=== PATIENT | male | born 1945 | race Caucasian/White ===

== ENCOUNTER → 2017-09-18 | Outpatient (CLI) | payer OTHER ==
[~2017-09-18] VITALS: Ht 185.4 cm; Wt 103.9 kg
[~2017-09-18] MED LIST: ASPIR 8181 MG PO; ATORVASTATIN CA40 MG PO; CENTRUM SILVER1 EAC4 PO; CO Q-10100 MG PO; CYCLOBENZAPRINE10 MG PO; GLUCOTROL5 MG PO; HYDROCHLOROTH12.5 M1 PO; HYDROCODONE-AP1 EAC6 PO; LISINOPRIL40 MG PO; METFORMIN HCL500 MG PO; NABUMETONE 500500 M1 PO; NEURONTIN 300300 M1 PO; NOVOLIN N100 UNIT/3 SQ; OMEGA 3 1,0001 EACH PO; PROTONIX40 M1 PO; VENTOLIN HFA 1818 GM INH
--- NOTE | ~2017-09-18 | HPC ---
[facility] [place] [address] PAIN MANAGEMENT CONSULTATION Name: JAVIER DIAZ Room #: REG [facility] Shashi#: [id number] Admission: 09/18/17 Attend Phys: Santiago Boyer DO Discharge: Date of : 43 Report #: [id number] THIS REPORT FOR: //name// CC: Santiago Liang Xiao DATE OF SERVICE: 09/18/2017 CHIEF COMPLAINT: Low back pain, left lower extremity pain and paresthesias. HISTORY OF PRESENT ILLNESS: As you know, the patient is a 71-year-old male who reports acute onset of low back pain and left lower extremity pain that presented on 07/24/2017. The patient states he suffered no new injury, no new trauma that may have led to symptom development. The patient sought evaluation through his primary care physician who ultimately sent the patient to see Dr. Wes Zayas given the findings on MRI. Findings were such that surgical options may be necessary, specifically at the L3-L4, L4-L5, and L5-S1 levels. The patient states that he has mainly left anterior thigh pain that presents throughout the day, but upon waking in the morning hours, he has bilateral lower extremity symptoms radiating in a dermatomal distribution of L5 and S1, correlating to the findings on his MRI. The patient states that he used to undergo chiropractic manipulation with good efficacy, but unfortunately chiropractic manipulation has begun to wane in its activity of improvement in symptoms. The patient sought evaluation with Dr. Zayas who referred the patient to our clinic to trial epidural injections. If these are ineffective, move forward with surgical options. The patient indicates the pain is intermittent, describes the pain as sharp and stabbing, places current pain score at 7-8/10; daily average at 2-9/10; at worst, pain has been at 10/10. The patient states standing for long periods of time exacerbates symptoms. Pain is improved with sitting in a chair or lying on his right side. He has been referred to our service to trial epidural injections to determine if these could improve the patient's symptoms versus moving forward with surgical options. PAST MEDICAL HISTORY: 1. Osteoarthritis. 2. Asthma. 3. Coronary artery disease. 4. Diabetes mellitus type 2. 5. Lumbar spondylosis. 6. Synovial cyst of the facet joints of the lumbar spine. 7. Dyslipidemia. 8. Diabetes mellitus type 2, insulin-dependent. [address] [address] PAIN MANAGEMENT CONSULTATION Name: JAVIER DIAZ Room #: REG CLI [facility]#: [id number] Admission: 09/18/17 Attend Phys: Santiago Boyer DO Discharge: Date of : 43 Report #: [id number] PAST SURGICAL HISTORY: Bilateral hip arthroplasties. SOCIAL HISTORY: The patient denies tobacco, IV or illicit drug use. Admits to 3-4 alcohol beverages per week. 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 He is working periodically. He is not receiving workmen's compensation nor is he trying to obtain disability benefits. He is not in litigation in regards to pain. REVIEW OF SYSTEMS: Positive for fatigue and weakness, wearing corrective eyewear, shortness of breath with walking and lying flat, asthma, wheezing, nocturia, incontinence and dribbling to urine, testicular lumps, numbness and tingling sensations, bilateral hand pain, insulin-dependent diabetes. All other review of systems negative per 12-point review of systems other than those listed in history of present illness. Pain impact score 39/70 indicating moderate interference of daily activities secondary to pain. ALLERGIES: PENICILLIN AND SULFA. CURRENT MEDICATIONS: Hydrochlorothiazide 12.5 mg once a day, glipizide 5 mg twice a day, insulin sliding scale, aspirin 81 mg per day, Coenzyme Q 100 mg per day, omega-3 fish oil 1200 mg once a day, multivitamin 1 tab per day, hydrocodone 5/325 one tab every 8 hours p.r.n. for pain, metformin 500 mg twice a day, lisinopril 40 mg once a day, atorvastatin 40 mg per day, pantoprazole 40 mg per day, albuterol 2 puffs q.4 hours p.r.n., gabapentin 300 mg 3 times a day. IMAGING: MRI of the lumbar spine obtained on 08/24/2017 shows T12-L1 unremarkable, L1-L2 shows disk space narrowing control, he has ventral endplate osteophyte formation, annular bulge extending approximately 3 mm posterior. There is no focal disk herniation, central canal stenosis or neural foraminal narrowing at this level. L2-L3 is unremarkable. L3-L4 shows mild bilateral facet arthropathy, ligamentum flavum hypertrophy, no evidence of disk herniation. There is prominent left foraminal to extraforaminal asymmetrical bulging. This results in mild-to- moderate narrowing of the inferior aspect of the left exiting nerve root. L4-L5 shows bilateral degenerative changes, hypertrophic changes, bilateral facet effusions, mild ligamentum flavum hypertrophy, facet joint synovial cysts on the right, resulting in mass effect on right lateral sac with medial displacement of the transversing L5 sacral nerve roots. There is left foraminal to extraforaminal broad-based asymmetric disk bulge resulting in marked left foraminal stenosis and left foraminal L4 nerve root impingement. L5-S1, moderate bilateral facet degenerative changes, small bilateral facet joint effusions. There is synovial cyst on the left with a posterior margin and impingement of the left L5 nerve root. Posterior facet changes noted. [facility] [address] [place] [address] PAIN MANAGEMENT CONSULTATION Name: JAVIER DIAZ Room #: REG [facility].#: [id number] Admission: 09/18/17 Attend Phys: Santiago Boyer DO Discharge: Date of : 43 Report #: [id number] PHYSICAL EXAMINATION: VITAL SIGNS: Blood pressure 147/55, pulse is 66, respiratory rate 14 and unlabored. The patient is 95% on room air, height 6 feet and 1 inch tall, weight 229 pounds, BMI calculated 30.2. GENERAL: Well-developed, well-nourished, well-hydrated 71-year-old male. He appears his stated age. He is in no acute distress, awake, alert and oriented x 3. Current pain score is rated at 8/10. HEENT: Normocephalic, atraumatic. Pupils equal, round, reactive to light. Extraocular muscles are intact. Sclerae nonicteric without injection. NEUROLOGIC: Cranial nerves 2-12 grossly intact. Speech is fluent. The patient deemed a good historian. LUNGS: Clear, no wheeze, rhonchi or rales. CARDIOVASCULAR: Regular. No appreciable gallop, no rub. ABDOMEN: Soft, nontender, nondistended, normoactive bowel sounds. EXTREMITIES: Show no clubbing, no cyanosis, no edema. MUSCULOSKELETAL: Lower extremity, the patient's lower extremity strength is 5/5 except for the left side with hip flexion and knee extension with 4/5 rated quadriceps. Deep tendon reflexes 2+/4 at patella and Achilles. Ankle clonus negative. Babinski is negative. Gait is antalgic favoring left lower extremity over right. The patient does use a cane for ambulation. He appears intact to light touch from L1 through S2 dermatomes. Seated straight leg raising positive on the left. Supine straight leg raising positive on the left. ASSESSMENT: 1. Symptomatic lumbar radiculopathy. 2. Displacement of lumbar intervertebral disk with radiculopathy. 3. Lumbosacral spondylosis with radiculopathy. 4. Neural foraminal stenosis of lumbar spine. 5. Facet arthropathy of the lumbar spine. 6. Chronic intractable pain. PLAN: Based on today's physical exam and history, the patient was provided with the prescription the patient uses in regard to pain as well as the location of symptoms that he notes in the day and upon waking in the morning, this is likely due to the changes at the foramen at L4-L5 and L5-S1 and do correlate to bilateral nature of the patient's pain in the morning hours. These tend to resolve with activity and changing position, but unfortunately the patient continues to experience left anterior thigh pain, which correlates more to the findings at the L3-L4 level. We have discussed with the patient the potential treatment options for the combination of symptoms that he is experiencing. Following was discussed with the patient on appropriate treatment options for pain management. We discussed physical therapy, stretching exercise, core strengthening. This is [address] [address] PAIN MANAGEMENT CONSULTATION Name: EMILYJAVIER PADILLA Room #: REG [facility] Shashi#: [id number] Admission: 09/18/17 Attend Phys: Santiago E. Merlin, DO Discharge: Date of : 43 Report #: [id number] the mainstay of treatment for pain generator from the low back. The patient has been referred by Dr. Zayas to begin physical therapy. We encouraged the patient to take this opportunity to continue the physical therapy. We discussed neuropathic pain medications. At present, the patient is taking gabapentin 300 mg 3 times a day, but is noticing no improvement in symptoms, no side effects. This could be rapidly escalated to a much higher dose for greater efficacy. We also discussed the addition of nonsteroidal anti-inflammatories and possible use of a muscle relaxant to provide better benefit. We discussed the requested epidural injections for which Dr. Zayas referred the patient to our clinic and the likely surgical options. After reviewing risks and benefits of all proposed treatment options, the patient chose to begin with epidural injection under fluoroscopic guidance. The patient was advised that third democrat payer restrictions require that authorization be obtained before the patient could undergo this epidural injection. Authorization could take anywhere from 4-7 working days, begin this process immediately, contact the patient once it has been completed, we will have him return at that point to undergo the first in a series of epidural injections, To control pain over the next couple of days as we await the authorization, the patient will increase his gabapentin. We will be utilizing Gralise in sample form. He will take 600 mg at night, which equates to 600 mg 3 times a day dose, which is an escalation from his 300 mg 3 times a day dose that he is currently taking. This will be taken again at night 2 hours before bedtime. He will then continue de-escalation as directed by the titration pack to a point where he begins to experience improvement in symptoms. He is to watch for side effects of somnolence, decreased mental acuity, disorientation, confusion. If he notes any side effects, reduce to the dose prior and contact our clinic. He was given a titration pack of Gralise today to begin this escalating dose. He is to stop his own home gabapentin in favor of this Gralise formulation. The patient was provided prescription of nabumetone 500 mg dose 1 tab p.o. t.i.d., I have given the patient #90. This is going to be utilized for anti-inflammatory effects and pain control. The patient will initiate this medication immediately. He will watch for side effects of dyspepsia, worsening of blood pressure, lower extremity edema. Any side effects, discontinue immediately, call for further instructions. The patient will be started on cyclobenzaprine 10 mg dose 1 tab p.o. b.i.d., I have given the patient #60 tablets, no refills. The patient was advised to watch for somnolence, decrease mental acuity, disorientation and confusion. If he notes any side effects, contact our clinic. We will see the patient back in followup visit once we have achieved authorization for the patient to undergo first in a series of epidural injections per the request of Dr. Zayas. The [place] [address] PAIN MANAGEMENT CONSULTATION Name: EMILYJAVIER PADILLA Room #: REG [facility]#: [id number] Admission: 09/18/17 Attend Phys: Santiago Boyer DO Discharge: Date of : 43 Report #: [id number] appointment next week in preparation for the authorization. If this is not obtained, we will then move the patient's time to a further opened appointment slot. We wish to thank Dr. Zayas for the referral of patient to our clinic. We will keep you apprised of his response to treatment as we address lumbar radicular symptoms. Again, we wish to thank you for the opportunity to see the patient in consultation. <ELECTRONICALLY SIGNED> By: Santiago Boyer DO 09/19/17 [id number] Santiago Boyer DO /nt
[2017-09-18 12:55] VITALS: BP 147/55
== END ==
LOC: PAIN 07:29
DX: M47.27 Other spondylosis with radiculopathy, lumbosacral region (principal); M48.062 Spinal stenosis, lumbar region with neurogenic claudication; M51.16 Intervertebral disc disorders with radiculopathy, lumbar region; M12.88 Other specific arthropathies, not elsewhere classified, other specified site; G89.29 Other chronic pain

== ENCOUNTER → 2017-09-25 | Outpatient (CLI) | payer OTHER ==
[~2017-09-25] VITALS: Ht 185.4 cm; Wt 105.0 kg
--- NOTE | ~2017-09-25 | HPC ---
[address] [place] [address] PAIN MANAGEMENT CONSULTATION Name: JAVIER DIAZ Room #: REG [facility].#: [id number] Admission: 09/25/17 Attend Phys: Santiago Boyer DO Discharge: Date of : 43 Report #: [id number] THIS REPORT FOR: //name// CC: Santiago Liang Xiao DATE OF SERVICE: 09/25/2017 CHIEF COMPLAINT: Low back pain, left lower extremity pain with paresthesias. HISTORY OF PRESENT ILLNESS: As you know, the patient is a 71-year-old male who reports acute onset of low back pain, left lower extremity pain and paresthesias, presented on 07/24/2017. He states he suffered no injury, no trauma that may have led to symptom development. He was seen by his neurosurgeon, Dr. Wes Zayas, who referred the patient to our clinic to trial epidural injections under fluoroscopic guidance to determine if his symptoms would improve with these conservative treatments. He was seen in consultation per the request of Dr. Zayas on 09/18/2017 and diagnosed with symptomatic lumbar radiculopathy secondary to the displacement of a lumbar intervertebral disk and facet arthropathy of the lumbar spine causing neural foraminal stenosis. At that visit, the patient and I discussed the various treatment options for lumbar radicular symptoms including the requested epidural injection. Due to third constitution party payer restrictions, the patient was unable to undergo the procedure at that visit. He returns today having received precertification to undergo the first in a series of epidural injections in hopes of improving pain. He denies new injury, new trauma or any changes in his medical history since our last visit. ALLERGIES: PENICILLIN, SULFA. CURRENT MEDICATIONS: Hydrochlorothiazide, glipizide, insulin, Coenzyme Q, omega-3 fish oil, multivitamin, hydrocodone, metformin, lisinopril, atorvastatin, pantoprazole, albuterol, gabapentin. SOCIAL HISTORY: The patient denies tobacco, IV or illicit drug use. Admits to 3 alcoholic beverages per week. 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 He is unaccompanied today. IMAGING: There is no new imaging available. PHYSICAL EXAMINATION: VITAL SIGNS: Blood pressure 143/64, pulse 65, respiratory rate 20 and unlabored. The patient is 99% on room air. Height is 6 feet 1 inch tall, weight is 231.4 pounds, BMI calculated 30.5. GENERAL: Well-developed, well-nourished, well-hydrated 71[place] [address] PAIN MANAGEMENT CONSULTATION Name: JAVIER DIAZ Room #: REG [facility].#: [id number] Admission: 09/25/17 Attend Phys: Santiago Boyer DO Discharge: Date of : 43 Report #: [id number] appearing his stated age, placing current pain score at around 7-8/10. HEENT: Normocephalic, atraumatic. Pupils equal, round, reactive to light. Extraocular muscles are intact. Sclerae nonicteric without injection. NEUROLOGIC: Cranial nerves 2-12 grossly intact. Speech is fluent. The patient deemed a fair historian. EXTREMITIES: Show no clubbing, no cyanosis, no edema. MUSCULOSKELETAL: Lower extremity strength appears equal and symmetrical, 5/5. Giveaway strength noted with hip flexion, knee extension on the left when compared to the right. Seated straight leg raising negative. Supine straight leg raising positive on the left. NICOLASA test negative. Modified Gaenslen's positive for axial back pain. Ankle clonus negative. Babinski is negative. ASSESSMENT: 1. Symptomatic lumbar radiculopathy. 2. Displacement of lumbar intervertebral disk with radiculopathy. 3. Lumbosacral spondylosis with radiculopathy. 4. Neural foraminal stenosis of lumbar spine. 5. Facet arthropathy of the lumbar spine. 6. Chronic intractable pain. PLAN: 1. The patient returns today in followup visit having received precertification to undergo epidural injection under fluoroscopic guidance. Precertification has been obtained through his third constitution party payer to undergo the first in a series of epidural injections. We have discussed with the patient the risks and the benefits of this procedure. These risks include, but not necessarily limited to bleeding, bruising, infection, worsening pain, no relief of pain, also risk of temporary or permanent muscle weakness, temporary or permanent nerve damage, possible paralysis and . The patient states he understood and wished to proceed. 2. No medication changes made at today's visit. The patient to continue current medical therapy as previously prescribed. 3. The patient to return to our clinic on an as-needed basis for the next in the series of epidural injections. We have made him an appointment back on a p.r.n. basis at this point. He is to discuss his efficacy with his neurosurgeon after this first injection. PROCEDURE NOTE DESCRIPTION OF PROCEDURE: L5-S1 left paramedian epidural steroid injection under fluoroscopic guidance. This is the first procedure of the first series that the patient is undergoing. After obtaining written consent, the patient was taken back to the fluoroscopy suite, placed in a prone position with pillow under the abdomen to decrease [address] [address] PAIN MANAGEMENT CONSULTATION Name: JAVIER DIAZ Room #: REG [facility]#: [id number] Admission: 09/25/17 Attend Phys: Santiago Boyer DO Discharge: Date of : 43 Report #: [id number] lumbar lordosis. The skin overlying the lumbosacral area was then prepped and draped in aseptic fashion. The L5-S1 vertebral interspace was then identified by AP fluoroscopy. The skin and subcutaneous tissue overlying the target site of injection was anesthetized with 3 mL 1% lidocaine. A 20-gauge 3-1/2 inch Tuohy needle was then advanced under fluoroscopic guidance towards the epidural space using a left paramedian approach. The epidural space was identified using loss of resistance to air technique. After negative aspiration for heme or cerebrospinal fluid, a total of 1 mL of Omnipaque was injected. A lumbar epidurogram was confirmed using both AP and lateral fluoroscopy. After negative aspiration for heme or cerebrospinal fluid, 5 mL of a solution containing 2 mL 40 mg per mL, 80 mg total triamcinolone, 3 mL lidocaine 1% was injected in increments. Contrast spread was noted posterior epidural space. The needle was then retracted approximately half way and needle tract flushed with 1 mL of 1% of lidocaine. Needle was then removed. There were no apparent sensory or motor deficits in the lower extremity following the procedure. A sterile bandage was placed over the injection site. The heart rate, pulse, oximetry and blood pressure were continuously monitored after the procedure. There were no apparent complications. The patient tolerated the procedure well and was carefully escorted to the recovery room in stable condition. There were no apparent complications. After meeting discharge criteria, the patient was then discharged home. By: [id number] Santiago Boyer DO /nt
[2017-09-25 10:50] VITALS: BP 143/64
== END | disposition home or self-care (01) ==
LOC: PAIN 06:38
DX: M51.16 Intervertebral disc disorders with radiculopathy, lumbar region (principal); M47.27 Other spondylosis with radiculopathy, lumbosacral region; M48.061 Spinal stenosis, lumbar region without neurogenic claudication; M46.96 Unspecified inflammatory spondylopathy, lumbar region; G89.29 Other chronic pain; Z88.0 Allergy status to penicillin; Z88.2 Allergy status to sulfonamides; Z79.899 Other long term (current) drug therapy

== ENCOUNTER 2018-01-07 12:38 | Emergency (ER) | payer OTHER ==
[~2018-01-07] VITALS: Ht 185.4 cm; Wt 99.8 kg
[2018-01-07] MEDS ORDERED: NORCO 5-325 TA1 EACH PO (13:12)
[2018-01-07] MEDS ORDERED: PERCOCET PO (15:34)
[2018-01-11] MEDS ORDERED: NAPROSYN500 M1 PO (08:13)
[2018-01-11] MEDS ORDERED: PERCOCET 7.5-31 EACH PO (08:13)
== END 2018-01-07 15:51 | disposition home or self-care (01) ==
LOC: ER 12:38
DX: M51.36 Other intervertebral disc degeneration, lumbar region (principal); M54.32 Sciatica, left side; M79.605 Pain in left leg; E11.9 Type 2 diabetes mellitus without complications; J45.909 Unspecified asthma, uncomplicated; Z79.4 Long term (current) use of insulin; Z88.0 Allergy status to penicillin; Z88.2 Allergy status to sulfonamides

== ENCOUNTER → 2018-01-11 | Outpatient (CLI) | payer OTHER ==
[~2018-01-11] VITALS: Ht 185.4 cm; Wt 83.9 kg
[~2018-01-11] MED LIST changes: +NAPROSYN500 M1 PO; +NORCO 5-325 TA1 EACH PO; +NOVOLIN N100 UNIT/1 SUBQ; +PERCOCET 7.5-31 EACH PO; +PERCOCET PO; +TYLENOL EXTRA500 MG PO
--- NOTE | ~2018-01-11 | HPC ---
[facility] [place] [address] PAIN MANAGEMENT CONSULTATION Name: JAVIER DIAZ Room #: REG MARIAMA AdamesChloeIban.#: [id number] Admission: 01/11/18 Attend Phys: Santiago Boyer DO Discharge: Date of : 43 Report #: [id number] THIS REPORT FOR: //name// CC: Santiago Liang Xiao DATE OF SERVICE: 01/11/2018 CHIEF COMPLAINT: Low back pain, left lower extremity pain with paresthesias. HISTORY OF PRESENT ILLNESS: As you know, the patient is a 72-year-old male who returns today in followup visit with recurrent low back pain, left lower extremity pain and paresthesias. The patient states he was doing well from a post-procedural standpoint, reporting improvement in his symptoms of about 60% with previous epidural injection, this lasted until just recently where he has had a return of symptoms. He denies injury or trauma. No change in his medical history. He indicates pain is sharp, stabbing and throbbing. Places his current pain score at 8-9/10. Pain is exacerbated with sitting, walking; improves with repositioning, medications, heat and cold compresses and epidural injections. The patient returns today in followup visit to undergo epidural injection under fluoroscopic guidance. ALLERGIES: PENICILLIN, SULFA. CURRENT MEDICATIONS: Oxycodone, cyclobenzaprine, nabumetone, hydrochlorothiazide, glipizide, insulin, aspirin, ubiquinone, omega-3 fish oil, multivitamin, metformin, lisinopril, atorvastatin, pantoprazole, albuterol, gabapentin. SOCIAL HISTORY: The patient denies tobacco, alcohol, IV or illicit drug use. 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 He is working periodically, unaccompanied today. IMAGING: There is no new imaging available. PHYSICAL EXAMINATION: VITAL SIGNS: Blood pressure 124/68, pulse 69, respiratory rate 16 and unlabored. The patient is 97% on room air, height 6 feet 1 inches tall, weight 185 pounds, BMI calculated 24.4. GENERAL: Well-developed, well-nourished, well-hydrated 72-year-old male appearing stated age, placing current pain score at 8-9/10. HEENT: Normocephalic, atraumatic. Pupils equal, round, reactive to light. Extraocular muscles are intact. EXTREMITIES: Show no clubbing, no cyanosis, no edema. MUSCULOSKELETAL: Gait is extremely antalgic [place] [address] PAIN MANAGEMENT CONSULTATION Name: JAVIER DIAZ Room #: REG [facility].#: [id number] Admission: 01/11/18 Attend Phys: Santiago Boyer DO Discharge: Date of : 43 Report #: [id number] right. The patient guards the left lower extremity, offloading weight to the right to decrease pain. Seated straight leg raising positive on the left. Supine straight leg raising positive on the left. NICOLASA test is negative. Modified Gaenslen's positive for axial low back pain. Ankle clonus negative. Babinski is negative. Muscle bulk and tone is symmetrical when comparing left lower extremity to right. ASSESSMENT: 1. Lumbar radiculopathy. 2. Displacement of a lumbar intervertebral disk with radiculopathy. 3. Lumbosacral spondylosis with radiculopathy. 4. Severe neural foraminal stenosis of lumbar spine. 5. Facet arthropathy of the lumbar spine. 6. Lumbar degeneration. 7. Chronic intractable pain. PLAN: 1. The patient returns today in followup visit to undergo next in the series of epidural injections. The patient had to be seen in the Emergency Department recently due to pain that became intense to the point where he could no longer tolerate the symptoms. He was seen in the ER, provided IV and oral medication and discharged home. There was no new imaging to review. The patient was advised to return to our clinic to trial an epidural injection. Due to third constitution party payer restrictions, we had to obtain authorization; we have done so and the patient is now ready to undergo epidural injection. The patient was provided today's appointment to undergo this epidural injection in hopes of improving pain. He was advised risks and benefits, states understood and wished to proceed. 2. Would recommend a discontinuation of nabumetone will be shifting his nonsteroidal anti-inflammatory over to naproxen 500 mg 3 times a day dose. I have given the patient a prescription of #90 tablets with 2 refills. The patient was advised to watch for side effects of dyspepsia, worsening blood pressure, lower extremity edema with the use of this therapy. 3. I have offered a prescription of oxycodone to the patient for pain control. This is to be used only when pain is intolerable, not to rely on the medication prophylactically. We have given him a prescription of oxycodone 5/325 one tab every 4-6 hours p.r.n. for pain, I have given the patient #60 tablets, no refills. The patient was advised to watch for side effects of this medication including somnolence, decreased mental acuity, disorientation, confusion, mental slowing with the use of therapy, is also watch for constipation issues. 4. I have recommended the patient follow up with his neurosurgeon as quickly as possible. The fact that his symptoms have returned to such a great intensity without injury or trauma, it is quite concerning. As you are aware, the patient has multiple levels of pathology in the lumbar spine that could be contributing to his symptoms. It appears at present, his symptoms were more related to the neural foraminal stenosis on the left at the L4-L5 level, which is consistent [facility] [address] [place] [address] PAIN MANAGEMENT CONSULTATION Name: JAVIER DIAZ Room #: REG [facility] [id number] Admission: 01/11/18 Attend Phys: Santiago Boyer DO Discharge: Date of : 43 Report #: [id number] with his distribution. The patient is to follow up with his neurosurgeon to discuss surgical options. 5. We will see the patient back in followup visit on an as-needed basis for possible next in the series of epidural injections. PROCEDURE NOTE DESCRIPTION OF PROCEDURE: L5-S1 left paramedian epidural steroid injection under fluoroscopic guidance. After obtaining written consent, the patient was taken back to fluoroscopy suite, placed in prone position with pillow under abdomen to decrease lumbar lordosis. Skin overlying lumbosacral area then prepped and draped in aseptic fashion. Lumbar intervertebral spaces were identified by AP fluoroscopy. Skin and subcutaneous tissue overlying target site of injection was anesthetized with 3 mL of 1% lidocaine. A 20-gauge 3-1/2 inch Tuohy needle advanced under fluoroscopic guidance towards the epidural space using a left paramedian approach. Epidural space identified using loss of resistance to air technique. After negative aspiration for heme or cerebrospinal fluid, 1 mL of Omnipaque injected. Lumbar epidurogram confirmed using both AP and lateral fluoroscopy. After negative aspiration for heme or cerebrospinal fluid, 5 mL of a solution containing 2 mL 40 mg per mL, 80 mg total triamcinolone and 3 mL of lidocaine 1% injected slowly. Needle retracted group home, flushed with 1 mL of 1% lidocaine and removed. Sterile bandage placed over injection site. No new motor deficits present in the lower extremity following procedure. The patient tolerated procedure well, carefully escorted to recovery room in stable condition. No apparent complications. After meeting discharge criteria, the patient discharged home. <ELECTRONICALLY SIGNED> By: Santiago Boyer DO 01/15/18 0731 0813 2049 Santiago Boyer DO /nt
[2018-01-11 07:35] VITALS: BP 124/68
== END | disposition home or self-care (01) ==
LOC: PAIN 06:45
DX: M51.16 Intervertebral disc disorders with radiculopathy, lumbar region (principal); M47.27 Other spondylosis with radiculopathy, lumbosacral region; M48.061 Spinal stenosis, lumbar region without neurogenic claudication; M46.96 Unspecified inflammatory spondylopathy, lumbar region; G89.29 Other chronic pain; Z88.0 Allergy status to penicillin; Z88.2 Allergy status to sulfonamides; Z79.891 Long term (current) use of opiate analgesic; Z79.4 Long term (current) use of insulin; Z79.899 Other long term (current) drug therapy

== ENCOUNTER 2018-01-14 14:05 | Inpatient (IN) | payer OTHER ==
[~2018-01-14] VITALS: Ht 185.4 cm; Wt 96.2 kg
--- NOTE | ~2018-01-14 | O ---
[facility] [place] [address] OPERATIVE REPORT Name: JAVIER DIAZ Room #: 220-P [facility] IN M.R.#: [id number] Admission: 01/14/18 Attend Phys: Zacarias [place] Discharge: 01/18/18 Date of : 43 Report #: [id number] THIS REPORT FOR: //name// CC: Paresh Liang Xiao PREOPERATIVE DIAGNOSES: 1. Foraminal disc herniation, left L4-L5 with severe left L4 radiculopathy. 5. Synovial cyst, right L4-L5 with lumbar spinal stenosis. OPERATION PERFORMED: 1. Transforaminal exposure with removal of large foraminal disc herniation and decompression of the left L4 nerve root. 2. Hemilaminotomy with decompression of the dura and nerve root and removal of synovial cyst, right L4-L5. The operation was done with fluoroscopy, microscopic dissection. SURGEON: Steven Tadeo M.D. CHILD CARE TEACHER: NIYAH Ni, assisted with the surgery. She assisted with exposure, decompression, discectomy and removal of synovial cyst as well as closure. OPERATIVE INDICATIONS: The patient is a pleasant 72-year-old man who developed intractable back and left leg to the point that he was unable to ambulate. On imaging studies, he had above-mentioned findings and I recommended lumbar microsurgery. He did have a grade 1 spondylolisthesis and I performed flexion and extension films, which I did not see significant motion and I recommended transforaminal exposure with microdiscectomy combined with a hemilaminotomy and microdecompression with removal of synovial cyst to deal with the problems at L4-L5. I spoke with him about the surgery, the risk, technique and expected postoperative course. He understood and he wished to go ahead. DESCRIPTION OF PROCEDURE: Following general endotracheal anesthesia, the patient was positioned prone on the Benito table. His lumbar region was prepped and draped in standard fashion. ELANA hose and AV impulse boots were applied for DVT prophylaxis. The microscope was draped, fluoroscope was draped and brought in the field. Monitoring was established. Vanco 1 gm was given less than 1 hour prior to initiation of the surgery. Using fluoroscopic guidance, a midline incision was made over the L4-L5 interspace. I dissected down through the skin and subcutaneous tissue. I reflected the paraspinal muscles toward the left and brought in the microscope and using microscopic technique, I burred down the hemilaminotomy to decompress at the side of the central canal and then followed the L4 root laterally. In a quite far lateral position, there was a large disc herniation with 3 large fragments, which were extending first beneath very distal root and markedly lifting and compressing it and then two other fragments [facility] [address] [place] [address] OPERATIVE REPORT Name: JAVIER DIAZ Room #: 220-P DIS IN M.R.#: [id number] Admission: 01/14/18 Attend Phys: Zacarias Dallas Discharge: 01/18/18 Date of : 44 Report #: [id number] as we moved proximally toward the common dural sac compressing the L4 root much more in the axilla and proximal root. I removed these fragments,the region became very well decompressed. I entered the disc space and performed discectomy with pituitary rongeurs, as I worked the entire region became well decompressed. I then explored carefully, there were no retained fragments. The root was very free and that appeared not to be in pressure any longer. I then went to the right side and again placing a [place] microdisc retractor. I brought in the microscope and burred down a generous hemilaminotomy. I then peeled away the very thickened ligamentum flavum. There was a large synovial cyst, which was scarred too and compressing the dura and I freed this up and then carefully worked and removed the takeoff of the S1 root. This was surrounded by scar and I worked to free this up and performed a partial foraminotomy. As I worked, the region became very well decompressed. The disc was firm. I irrigated copiously. I closed the wound then with absorbable sutures and the skin was closed with 4-0 subcuticular stitch. The operation went very well and the patient awakened uneventfully, taken to recovery room in excellent condition. I was quite pleased with the surgery. <ELECTRONICALLY SIGNED> By: Steven Tadeo MD 01/24/18 1457 1722 1316 Steven Tadeo MD /nt
--- NOTE | ~2018-01-14 | EKG ---
[address] [place] [place] [address] ELECTROCARDIOGRAM REPORT Name: JAVIER DIAZ Room #: 220-P ADM IN M.R.#: [id number] Admission: 01/14/18 Attend Phys: Zacarias Dallas Discharge: Date of : 43 Report #: [id number] THIS REPORT FOR: //name// [facility] Test Date: 2018-01-17 Test Time: 10:33:33 Pat Name: JAVIER DIAZ Department: Room: 220 P Gender: M Stranding Supervisor: VIC : 1945 Requested By: Steven Tadeo Order Number: [id number] MD: Segun Keys Measurements Intervals [place] Rate: 71 P: CO: QRS: 2 QRSD: 110 T: 93 QT: 407 QTc: 443 Interpretive Statements Sinus rhythm with PACS and PVCs Motion artifact No ischemia Baseline wander in lead(s) II No previous ECG available for comparison Electronically Signed On 01-17-2018 13:08:44 CDT by Segun Keys [email or web address] <ELECTRONICALLY SIGNED> By: Segun Keys MD 01/17/18 1308 32 32 Segun Keys MD /MONCHO
--- NOTE | ~2018-01-14 | H ---
[facility] [place] [address] HISTORY AND PHYSICAL Name: JAVIER DIAZ Room #: 220-P ADM IN M.R.#: [id number] Admission: 01/14/18 Attend Phys: Zacarias Dallas Discharge: Date of : 43 Report #: [id number] THIS REPORT FOR: //name// CC: Paresh Liang Xiao DATE OF SERVICE: 01/14/2018 CHIEF COMPLAINT: Back pain. HISTORY OF PRESENT ILLNESS: The patient is a 72-year-old gentleman who came in the Emergency Room with intractable back pain. He has a long-standing history of degenerative disk disease and has seen pain clinic and surgeons in the past with no real resolution nor to his issue. He suffered from progressive back pain in the recent weeks and had an epidural injection through the pain clinic with Dr. Boyer 3 days ago; however, his pain remained severe over the weekend and to the point where he could not function at home. He presented to the Emergency Room. He has also complained of constipation and x-ray has revealed retained stool. Overnight, he rested pretty fairly, but still has pain this morning and has not been up to see if he can walk or function. PAST MEDICAL HISTORY: Diabetes type 2, degenerative disk disease, chronic back pain with radiculopathy. PAST SURGICAL HISTORY: Unknown. FAMILY HISTORY: Noncontributory. SOCIAL HISTORY: He lives at home. No chronic alcohol or tobacco use. ALLERGIES: PENICILLIN, SULFA. MEDICATIONS: Insulin, metformin, Percocet 5 mg, Flexeril, gabapentin, nabumetone. REVIEW OF SYSTEMS: He denies headache, chest pain, shortness of breath, dysuria, myalgias, syncope or fall. OBJECTIVE: VITAL SIGNS: Temperature 36.6, pulse 71, respirations , blood pressure 167/72, O2 sat 95% on room air. GENERAL: He is awake and alert, in no distress. LUNGS: Clear. HEART: Regular. ABDOMEN: Soft, normoactive bowel sounds. EXTREMITIES: No edema. [facility] [place] [address] HISTORY AND PHYSICAL Name: JAVIER DIAZ Room #: 220-P [facility] IN M.R.#: [id number] Admission: 01/14/18 Attend Phys: Zacarias Dallas Discharge: Date of : 44 Report #: [id number] NEUROLOGIC: Global strength 4/5 throughout. ASSESSMENT: 1. Intractable back pain. 2. Degenerative disk disease. 3. Lumbar radiculopathy. 4. Peripheral neuropathy. 5. Diabetes type 2. PLAN: His creatinine is a little bit elevated, but I believe he was using hydrochlorothiazide at home, so this may just be a mild prerenal state. For now, hold off on NSAIDs and metformin with followup lab data. Insulin plus sliding scale for now. Percocet has been increased to 10 mg. I will try Lyrica t.i.d. for neuropathy type pain. Physical therapy and social work to assist with him. Anticipate discharge to home if he is functional. <ELECTRONICALLY SIGNED> By: Alex Marcial MD 01/15/18 1218 1019 1034 Alex Marcial MD /nt
--- NOTE | ~2018-01-14 | PATH ---
[facility] [place] [address] PATHOLOGY RPT PROCEDURE Name: EMILYTJ PADILLA Room #: 220-P DIS IN M.R.#: [id number] Admission: 01/14/18 Date of : 43 Discharge: 01/18/18 Report #: [id number] Path Case #: [id number] [facility] Accession Number: [id number] . 01 Material submitted: . PART A: DISC L4-5 PART B: CYST L4-5 . 01 Clinical history: . Lumbar herniated disc, radiculopathy . 02 Diagnosis: A. Fragments of bone and cartilage, "disc L4-5": - Fragments of bone and cartilage and soft tissue consistent with disc material. . B. Soft tissue, bone and cartilage, "cyst L4-5": - Fragments of bone and cartilage consistent with disc material. - Sections also reveal fibrous-lined cyst. - There is no evidence of atypia or malignancy. . (MÓNICA:pau; 01/21/2018) MBIban/01/21/2018 . 02 Electronically signed: . Orion Whittaker MD, Pathologist NPI- [id number] . 01 Gross description: . A. The specimen is received in formalin, labeled "Tj Everett, disc L4-5", are several bynum-white firm to rubbery soft tissues 2.0 x 1.4 x 0.7 cm in aggregate. The pre-degenerative tissue is submitted in A1. . B. The specimen is received in formalin, labeled "Tj Everett, cyst L4-5", are two irregular fragments of angelo rubbery soft tissue measuring 1.2 x 0.7 x 0.6 cm and 1.0 x 0.9 x 0.4 cm, entirely submitted in B1. (SWS; 01/18/2018) SHS/SHS . 02 Pathologist provided ICD-10: M51.26, M54.16 . 02 CPT . 135140, 952389 Specimen Comment: A courtesy copy of this report has been sent to Specimen Comment: [phone], , . Specimen Comment: Report sent to , DR HILL / DR MCDONALD [address] [address] PATHOLOGY RPT PROCEDURE Name: TJ EVERETT Room #: 220-P DIS IN M.R.#: [id number] Admission: 01/14/18 Date of : 43 Discharge: 01/18/18 Report #: [id number] Path Case #: [id number] Performed at: 01 [facility] Car[facility] [address] [facility] [address], [place], [place] [id number] MD Kenny Hawley MD Phone: [phone] Performed at: [address] [id number] MD Jo Orlando MD Phone: [phone]
[~2018-01-14 14:05] MED LIST changes: -NOVOLIN N100 UNIT/1 SUBQ; -TYLENOL EXTRA500 MG PO
[2018-01-14 14:31] VITALS: BP 134/75
[2018-01-14 17:30] LABS: ABSOLUTE NEUTROPHILS 8.8 thou/uL (1.4-8.2); BASOPHILS 0.9 % (0.0-2.0); EOSINOPHILS 0.4 % (0.0-3.0); HEMATOCRIT 42.3 % (42.0-52.0); HEMOGLOBIN 14.6 gm/dL (14.0-18.0); LYMPHOCYTES 16.8 % (24.0-44.0); MCH 30.9 pg (26.0-34.0); MCHC 34.5 g/dL (28.0-37.0); MCV 89.6 fL (80.0-100.0); MONOCYTES 6.4 % (1.0-8.0); PLATELET COUNT 280 thou/uL (150-400); POLYS 75.5 % (36.0-66.0); RBC 4.72 mil/uL (4.50-6.00); RDW 13.8 % (10.5-14.5); WBC 11.6 thou/uL (4.0-11.0)
[2018-01-14] MEDS ORDERED: TYLENOL EXTRA500 MG PO (17:30)
[2018-01-14] MEDS ORDERED: METFORMIN HCL500 MG PO (17:30)
[2018-01-14 17:35] LABS: CALCIUM 9.6 mg/dL (8.5-10.1); CREATININE 1.7 mg/dL (0.7-1.3); POTASSIUM 4.6 mmol/L (3.5-5.1)
[2018-01-14 17:36] VITALS: BP 159/67
[2018-01-14 18:21] VITALS: BP 154/80
[2018-01-14 18:42] VITALS: BP 174/66
[2018-01-14 20:35] VITALS: BP 151/61
[2018-01-14] MEDS ORDERED: NOVOLIN N100 UNIT/1 SUBQ (23:05)
[2018-01-15 04:03] VITALS: BP 163/63
[2018-01-15 07:33] VITALS: BP 167/72
[2018-01-15 19:23] VITALS: BP 156/67
[2018-01-16 07:15] VITALS: BP 107/79
[2018-01-16 08:02] LABS: CALCIUM 9.9 mg/dL (8.5-10.1); CREATININE 1.3 mg/dL (0.7-1.3); POTASSIUM 4.7 mmol/L (3.5-5.1)
[2018-01-16 20:01] VITALS: BP 147/67
[2018-01-17 08:12] VITALS: BP 128/70
[2018-01-17 18:55] VITALS: BP 162/77
[2018-01-17 18:56] VITALS: BP 144/80; BP 164/71
[2018-01-17 20:59] VITALS: BP 141/67
[2018-01-17 21:51] VITALS: BP 113/69
[2018-01-17 22:55] VITALS: BP 142/67
[2018-01-18 00:44] VITALS: BP 144/69
[2018-01-18 05:36] VITALS: BP 120/65
[2018-01-18 06:42] VITALS: BP 144/69
[2018-01-18 08:00] VITALS: BP 144/69
[2018-01-18] MEDS ORDERED: MIRALAX17 GM PO (16:02)
[2018-01-18] MEDS ORDERED: NOVOLOG100 UNIT/1 SUBQ (16:02)
[2018-01-18] MEDS ORDERED: LYRICA25 MG PO (16:02)
[2018-01-18] MEDS ORDERED: PERCOCET 10-321 EACH PO (16:03)
== END 2018-01-18 17:16 | DRG 518 ==
LOC: ER 14:05 → SICU 17:02 → 4E 17:02 → EROBS 17:02 → 4E 18:35 → SICU 01-15 12:02
PROVIDERS: Internal Medicine Geriatric Medicine; Student in an Organized Health Care Education/Training Program
PROC: 0SB20ZZ Excision of Lumbar Vertebral Disc, Open Approach (ICD-10-PCS; 2018-01-14)
PROC: 01NB3ZZ Release Lumbar Nerve, Percutaneous Approach (ICD-10-PCS; principal; 2018-01-17)
DX: M51.16 Intervertebral disc disorders with radiculopathy, lumbar region (principal); N17.0 Acute kidney failure with tubular necrosis; M48.061 Spinal stenosis, lumbar region without neurogenic claudication; M54.9 Dorsalgia, unspecified; E11.9 Type 2 diabetes mellitus without complications; J45.909 Unspecified asthma, uncomplicated; K59.00 Constipation, unspecified; G89.29 Other chronic pain; G25.0 Essential tremor; M19.90 Unspecified osteoarthritis, unspecified site; I10 Essential (primary) hypertension; Z79.899 Other long term (current) drug therapy; Z95.5 Presence of coronary angioplasty implant and graft; Z88.0 Allergy status to penicillin; Z88.2 Allergy status to sulfonamides
CPT/HCPCS: 10084; 15002; 50010; 50101; 50144; 50402; 50515; 50704; 51687; 51779; 53210; 54118; 55106; 56526; 56528; 56532; 57103; 62110; 62900; 70005

== ENCOUNTER → 2018-10-16 | Outpatient (CLI) | payer OTHER ==
[~2018-10-16] MED LIST changes: +LYRICA25 MG PO; +MIRALAX17 GM PO; +NOVOLIN N100 UNIT/1 SUBQ; +NOVOLOG100 UNIT/1 SUBQ; +PERCOCET 10-321 EACH PO; +TYLENOL EXTRA500 MG PO
== END ==
LOC: RAD 12:29
DX: J45.20 Mild intermittent asthma, uncomplicated (principal)

== ENCOUNTER → 2018-11-12 | Outpatient (CLI) | payer OTHER ==
--- NOTE | ~2018-11-12 | PFR/MVV ---
[facility] [place] [address] PULMONARY FUNCTION MVV/REPORT Name: JAVIER DIAZ [facility] #: [facility] [id number] Admission: 11/12/18 Attend Phys: Alex Marcial MD Discharge: Date of : 43 Report #: [id number] THIS REPORT FOR: //name// COPIES FOR: AGE: 72 SEX/RACE: M/C >> SPIROMETRY: (BTPS) Height: 73 in cm Weight: 222 lbs kg Exam Date: 11/12/18 PRE-RX POST-RX PRED BEST %PRED BEST %PRED %CHG FVC LITERS . 4.74 . 4.01 . 85 . 4.25 . 90 . 6 FEV1 LITERS . 3.12 . 2.42 . 78 . 2.64 . 85 . 9 FEV1/FVC % . 67 . 60 . 91 . 62 . 93 . 3 LHB31-92% L/Sec . 2.66 . 0.96 . 36 . 1.17 . 44 . 22 PEF L/SEC . 8.88 . 5.94 . 67 . 6.29 . 71 . 6 FEF50/FIF50 UNITLESS . . 0.49 . . 0.70 . . 42 MVV L/Min . 134 . 36 . 27 f 1/Min . . 150 . >> LUNG VOLUMES: (BTPS) PRE-RX POST-RX PRED AVG %PRED AVG %PRED %CHG VC Liters . 4.74 . 4.01 . 85 . . . TLC Liters . 7.18 . 7.16 . 100 . . . RV Liters . 2.80 . 3.14 . 112 . . . RV/TLC % . 42 . 44 . 105 . . . FRC [address] Liters . 3.90 . 3.84 . 98 . . . FRC N2 Liters . . . . . . ERV Liters . 1.61 . 0.69 . 43 . . . IC Liters . 3.23 . 2.63 . 82 . . . >> DIFFUSION: DLCO ml/Min/mmHg . 24.2 . 16.6 . 69 . . . DL Rosio ml/Min/mmHg . 24.2 . 16.6 . 69 . . . DLCO/VA ml/Min/mmHg . 3.48 . 3.29 . 95 . . . VA Liters . . 5.05 . . . . [facility] [address] [place] [address] PULMONARY FUNCTION MVV/REPORT Name: JAVIER DIAZ Room #: REG [facility]#: [id number] Admission: 11/12/18 Attend Phys: Alex Marcial MD Discharge: Date of : 43 Report #: [id number] COMMENTS: COMMENTS: >> RESISTANCE: PRE-RX PRED AVG %PRED Raw Total cmH20/L/Sec . . 5.71 . Raw Insp cmH20/L/Sec . . 4.35 . Raw Exp cmH20/L/Sec . . 7.24 . Raw cmH20/L/Sec . 1.12 . 4.12 . 366 Gaw L/Sec/cmH20 . 0.937 . 0.243 . 26 sRaw cmH20 Sec . 4.39 . 21.08 . 480 sGaw l/cmH20 Sec . 0.228 . 0.047 . 21 Vtq Liters . . 5.12 . # = OUTSIDE 95% CONFIDENCE INTERVAL CALIBRATION: PRED: 3.00 ACTUAL: EXP 3.01 INSP 3.02 IPS-OL10-06 [facility]-05 N-1804-4 >> INTERPRETATION/IMPRESSION: CC: Alex Liang Xiao DATE OF SERVICE: 11/12/2018 SPIROMETRY: FEV1 is 2.42 liters (78%), FVC is 4.01 liters (85%), FEV1/FVC ratio 60%. Postbronchodilator therapy with intermediate response. LUNG VOLUMES: Total lung capacity is 7.16 liters (100%). RV is 3.14 liters (112%). Diffusing capacity of 69%. IMPRESSION: Pulmonary function studies are consistent with a mild obstructive airflow defect with no significant response to bronchodilator therapy. There is [address] [address] PULMONARY FUNCTION MVV/REPORT Name: JAVIER DIAZ RANDY Room #: REG CLAmbrocio Shashi#: [id number] Admission: 11/12/18 Attend Phys: Alex Marcial MD Discharge: Date of : 43 Report #: [id number] no evidence of air trapping nor hyperinflation. Diffusing capacity is slightly decreased. By: Tu Lee MD /silvestre
== END ==
LOC: PUL 09:21
DX: J45.20 Mild intermittent asthma, uncomplicated (principal)